=== PATIENT | male | born 1960 ===

== ENCOUNTER 2018-12-27 14:24 | Outpatient (CLI) | payer OTHER ==
--- NOTE | 2018-12-27 16:07 | CT Report ---
Reason: ENCNTR SCREEN FOR MALIGNANT NEOPLASM OF RESPIRATOR Procedure Date: 12/27/2018 Accession Number: [id number] / [id number] Procedure: CT - Low Dose Lung Cancer Screen CPT Code: FULL RESULT: EXAM CT LUNG SCREEN EXAM DATE: 12/27/2018 02:35 PM. HISTORY: 58-year-old patient with [id number] smoking history. Currently smoking: No. The patient quit within the last 15 years. COMPARISON: None. TECHNIQUE: CT examination of the entire thorax without contrast was performed using low-dose technique. Thin section coronal, axial, sagittal and MIP axial images were obtained. In accordance with CT protocol optimization, one or more of the following dose reduction techniques were utilized for this exam: automated exposure control, adjustment of mA and/or KV based on patient size, or use of iterative reconstructive technique. FINDINGS: Nodules: Right upper lobe: 3 mm nodule image 51 series 4 Right middle lobe: 5 mm nodule image 96, 4 mm nodule image 92 Right lower lobe: 3 mm nodule image 84 Left upper lobe: 2 mm nodule image 84 Left lower lobe: 2 mm nodule image 58 Emphysema: None. Pleura: Unremarkable. Aorta: Mild calcifications. Mediastinum: No lymphadenopathy. Coronary calcifications: Mild to moderate three-vessel. Other pulmonary findings: None. Other extrapulmonary findings: Left posterior renal exophytic nodule, not characterized due to low-dose technique, 2.1 cm. IMPRESSION: Lung-RADS ASSESSMENT CATEGORY: 2 - benign appearance or behavior. Probability of malignancy: Less than 1%. RECOMMENDATION: Continue annual low-dose chest CT screening. The uncharacterized exophytic 2.1 cm left renal nodule statistically most likely represents a cyst. This could be confirmed by renal ultrasound. [facility]
== END 2018-12-27 14:25 | disposition home or self-care (01) ==
LOC: DI 14:24
PROVIDERS: ATTEND Family Medicine
DX: Z12.2 Encounter for screening for malignant neoplasm of respiratory organs (principal); Z87.891 Personal history of nicotine dependence